=== PATIENT | male | born 1955 | race Two or more races ===

== ENCOUNTER → 2017-02-14 | Outpatient (CLI) | payer BC | END | disposition home or self-care (01) | LOC: HKI 13:08 | DX: Z47.89 Encounter for other orthopedic aftercare (principal); M94.262 Chondromalacia, left knee; M25.562 Pain in left knee ==

== ENCOUNTER → 2017-02-27 | Outpatient (CLI) | payer BC | END | disposition home or self-care (01) | LOC: HKI 13:12 | DX: Z47.1 Aftercare following joint replacement surgery (principal); M25.562 Pain in left knee; Z96.652 Presence of left artificial knee joint | CPT/HCPCS: Z7500 ==

== ENCOUNTER → 2017-05-08 | Outpatient (CLI) | payer BC | END | disposition home or self-care (01) | LOC: HKI 09:53 | DX: Z01.818 Encounter for other preprocedural examination (principal) | CPT/HCPCS: Z7500 ==

== ENCOUNTER 2017-05-10 07:39 | Day surgery (SDC) | payer BC ==
[~2017-05-10 07:39] MED LIST: CEFAZOLIN SODIUM 2GM/D5W 50 X1 IVPB; PROPOFOL 200 MG INJ
[2017-05-10] MEDS: ONDANSETRON 4 MG INJ IV (08:53)
[2017-05-10] MEDS: oxyCODONE (CR) 10 MG TAB [oxyCONTIN] PO (08:54)
[2017-05-10] MEDS: DEXAMETHASONE 4 MG/ML 1 ML INJ IV (08:54)
[2017-05-10] MEDS: LANSOPRAZOLE 30 MG CAP PO (08:54)
[2017-05-10] MEDS: LACTATED RINGER'S 1,000 ML IV* (08:55)
[2017-05-10] MEDS: ACETAMINOPHEN 1000MG/100ML IV 100 ML IVPB (08:55)
[2017-05-10] MEDS: CELECOXIB 200 MG CAP PO (08:55)
[2017-05-10] MEDS ORDERED: MIDAZOLAM 1 MG/ML 2 ML INJ (10:57)
[2017-05-10] MEDS: TRIAMCINOLONE ACET 40 MG/ML INJ (11:25)
[2017-05-10] MEDS: LIDOCAINE 1% (MPF) 30 ML INJ (11:25)
[2017-05-10] MEDS ORDERED: ONDANSETRON 4 MG INJ IV ×2 (11:30→12:30)
[2017-05-10] MEDS ORDERED: HYDROCODONE/APAP (5/325) TAB PO (11:30)
[2017-05-10] MEDS ORDERED: ETOMIDATE 20 MG INJ (11:58)
[2017-05-10] MEDS ORDERED: CEFAZOLIN 1 GM INJ (11:58)
[2017-05-10] MEDS ORDERED: LIDOCAINE 2% (SDV) 5 ML INJ (11:58)
[2017-05-10] MEDS ORDERED: ONDANSETRON 4 MG INJ (12:00)
[2017-05-10] MEDS ORDERED: DIPHENHYDRAMINE 50 MG INJ IV (12:30)
[2017-05-10] MEDS ORDERED: HYDROmorphONE (0.2 MG/ML) 10ML SYG IV ×2 (12:30)
[2017-05-10] MEDS ORDERED: FENTAnyl 50 MCG/ML VIAL IV (12:30)
[2017-05-10] MEDS ORDERED: METOCLOPRAMIDE 10 MG INJ IV (12:30)
[2017-05-10] MEDS ORDERED: LABETALOL HCL 20MG INJ IV (12:30)
[2017-05-10] MEDS ORDERED: MEPERIDINE 25 MG INJ IV (12:30)
[2017-05-10] MEDS: HYDROCODONE/APAP (5/325) TAB PO (14:15)
== END 2017-05-10 14:30 | disposition home or self-care (01) ==
LOC: SDS 07:39
DX: M17.12 Unilateral primary osteoarthritis, left knee (principal); M23.222 Derangement of posterior horn of medial meniscus due to old tear or injury, left knee; M65.9 Synovitis and tenosynovitis, unspecified; M94.262 Chondromalacia, left knee; E78.5 Hyperlipidemia, unspecified; I10 Essential (primary) hypertension
CPT/HCPCS: 29870

== ENCOUNTER → 2017-05-23 | Outpatient (CLI) | payer BC | END | disposition home or self-care (01) | LOC: HKI 14:04 | DX: Z09 Encounter for follow-up examination after completed treatment for conditions other than malignant neoplasm (principal); M17.12 Unilateral primary osteoarthritis, left knee | CPT/HCPCS: 73564; 73564-LT ==

== ENCOUNTER → 2017-10-03 | Outpatient (CLI) | payer BC | END | disposition home or self-care (01) | LOC: HKI 13:02 | DX: Z01.818 Encounter for other preprocedural examination (principal) | CPT/HCPCS: Z7500 ==

== ENCOUNTER 2017-10-04 07:05 | Inpatient (IN) | payer BC ==
[~2017-10-04 07:05] MED LIST changes: -CEFAZOLIN SODIUM 2GM/D5W 50 X1 IVPB; +EPHEDrine SULFATE 50 MG/5 ML SYG; -PROPOFOL 200 MG INJ
[2017-10-04] MEDS ORDERED: oxyCODONE 5 MG TAB PO (07:30)
[2017-10-04] MEDS ORDERED: BETHANECHOL 25 MG TAB PO (07:30)
[2017-10-04] MEDS ORDERED: DIPHENHYDRAMINE 50 MG INJ IV ×2 (07:30→11:30)
[2017-10-04] MEDS ORDERED: CEFAZOLIN 1 GM/50 ML (PMX) 50 ML IVPB ×3 (07:30→14:00)
[2017-10-04] MEDS ORDERED: NALOXONE (0.4 MG/ML) INJ IV (07:30)
[2017-10-04] MEDS ORDERED: SENNA/DOCUSATE NA (8.6MG/50MG) TAB PO (07:30)
[2017-10-04] MEDS ORDERED: ASPIRIN (EC) 325 MG TAB PO (07:30)
[2017-10-04] MEDS: DEXAMETHASONE 4 MG/ML 1 ML INJ IV (08:12)
[2017-10-04] MEDS: LANSOPRAZOLE 30 MG CAP PO (08:13)
[2017-10-04] MEDS: oxyCODONE (CR) 10 MG TAB [oxyCONTIN] PO (08:13)
[2017-10-04] MEDS: ONDANSETRON 4 MG INJ IV ×6 (08:13→22:15)
[2017-10-04] MEDS: CELECOXIB 200 MG CAP PO (08:13)
[2017-10-04] MEDS: LACTATED RINGER'S 1,000 ML IV* (08:14)
[2017-10-04] MEDS ORDERED: BUPIVACAINE 0.75%/DEXT (SPINAL) 2 ML INJ (10:43)
[2017-10-04] MEDS ORDERED: morphine SULFATE/PF (10 MG/10 ML) INJ (10:43)
[2017-10-04] MEDS ORDERED: PROPOFOL 20 ML (10:46)
[2017-10-04] MEDS ORDERED: MIDAZOLAM 1 MG/ML 2 ML INJ (10:46)
[2017-10-04] MEDS ORDERED: ONDANSETRON 4 MG INJ (10:46)
[2017-10-04] MEDS: TRANEXAMIC ACID 1,000 MG in NS 100 ML PRE-OP X1 IVPB (10:47)
[2017-10-04] MEDS ORDERED: CEFAZOLIN 1 GM INJ (10:47)
[2017-10-04] MEDS ORDERED: METOCLOPRAMIDE 10 MG INJ ×2 (10:47→18:27)
[2017-10-04] MEDS: BACITRACIN 50000 UNITS INJ IRR (11:27)
[2017-10-04] MEDS: POLYMYXIN B 500000 UNIT INJ (11:27)
[2017-10-04] MEDS: KNEE PAIN COCKTAIL (CEFUROXIME) INJ ×2 (11:28→20:16)
[2017-10-04] MEDS ORDERED: hydrALAzine 20 MG INJ IV (11:30)
[2017-10-04] MEDS ORDERED: MEPERIDINE 25 MG INJ IV (11:30)
[2017-10-04] MEDS ORDERED: HYDROmorphONE 1 MG/5 ML IV SYRINGE IV ×3 (11:30)
[2017-10-04] MEDS ORDERED: EPHEDrine SULFATE 50 MG/5 ML SYG IV (11:30)
[2017-10-04] MEDS ORDERED: LABETALOL HCL 20MG INJ IV (11:30)
[2017-10-04] MEDS: TRANEXAMIC ACID 1,000 MG in NS 100 ML INTRA-OP X1 IVPB (12:10)
[2017-10-04] MEDS ORDERED: ROPIVACAINE 0.2% 20 ML VIAL (12:15)
[2017-10-04] MEDS ORDERED: LIDOCAINE 2% (SDV) 5 ML INJ (12:15)
[2017-10-04] MEDS: CEFAZOLIN 1 GM/50 ML (PMX) 50 ML IVPB ×2 (13:34→22:17)
[2017-10-04] MEDS: DOCUSATE SODIUM 100 MG CAP PO ×2 (13:35→20:16)
[2017-10-04] MEDS: ASPIRIN (EC) 325 MG TAB PO ×2 (13:36→22:21)
[2017-10-04] MEDS: SOD CHLORIDE 0.9% 1,000 ML IV ×2 (13:45→22:15)
[2017-10-04] MEDS: METOCLOPRAMIDE 10 MG INJ IV (18:40)
[2017-10-04] MEDS: GABAPENTIN 100 MG CAP PO ×2 (20:16→22:16)
[2017-10-04] MEDS: PANTOPRAZOLE (EC) 40 MG TAB PO (20:16)
[2017-10-04] MEDS: CEFAZOLIN 2 GM/50 ML (PMX) 50 ML IVPB (20:16)
[2017-10-04] MEDS: SCOPOLAMINE 1.5 MG PATCH TRANSDERM (20:16)
[2017-10-04] MEDS: LATANOPROST 0.005% 2.5 ML OPH BOTH EYES (22:15)
[2017-10-04] MEDS: DORZOLAMIDE/TIMOLOL 10 ML OPH BOTH EYES (22:16)
[2017-10-04] MEDS: TAMSULOSIN (SR) 0.4 MG CAP PO (22:16)
[2017-10-05] MEDS: ONDANSETRON 4 MG INJ IV (01:23)
[2017-10-05 05:05] LABS: ADD MAN DIFF? NO
[2017-10-05 05:10] LABS: WHITE BLOOD COUNT 10.1 10^3/ul (4.8-10.8)
[2017-10-05 05:10] LABS: BASOPHILS % 0.1 % (0.0-2.0); EOSINOPHILS % 0.1 % (0.0-7.0); HEMATOCRIT 34.1 % (42.0-52.0); LYMPHOCYTES # 1.5 10^3/ul (0.8-2.9); MEAN CORPUSCULAR HEMOGLOBIN 31.9 pg (29.0-33.0); MEAN CORPUSCULAR HGB CONC 35.2 g/dl (32.0-37.0); MEAN CORPUSCULAR VOLUME 90.7 fl (82.0-101.0); MEAN PLATELET VOLUME 10.5 fl (7.4-10.4); MONOCYTE # 1.1 10^3/ul (0.3-0.9); MONOCYTES % 10.5 % (0.0-11.0); NEUTROPHIL # 7.5 10^3/ul (1.6-7.5); NEUTROPHILS % 73.9 % (39.0-77.0); PLATELET COUNT 247 10^3/UL (140-415); RED BLOOD COUNT 3.76 10^6/ul (4.70-6.10); RED CELL DISTRIBUTION WIDTH 12.3 % (11.5-14.5)
[2017-10-05 05:34] LABS: ANION GAP 15 (8-16); BLOOD UREA NITROGEN 12 mg/dl (7-20); CALCIUM 8.1 mg/dl (8.4-10.2); CARBON DIOXIDE 23 mmol/L (21-31); CHLORIDE 106 mmol/L (97-110); CREATININE 0.57 mg/dl (0.61-1.24); GLUCOSE 107 mg/dl (70-220); POTASSIUM 3.7 mmol/L (3.5-5.1); SODIUM 140 mmol/L (135-144)
[2017-10-05] MEDS: CEFAZOLIN 1 GM/50 ML (PMX) 50 ML IVPB (06:34)
[2017-10-05] MEDS: PANTOPRAZOLE (EC) 40 MG TAB PO (06:34)
[2017-10-05 07:50] LABS: ADD UMIC YES; UR ASCORBIC ACID NEGATIVE (NEGATIVE); UR BILIRUBIN (Dip) NEGATIVE (NEGATIVE); UR BLOOD (Dip) 1+ mg/dL (NEGATIVE); UR CLARITY CLEAR (CLEAR); UR COLOR YELLOW (YELLOW); UR GLUCOSE (Dip) NEGATIVE (NEGATIVE); UR KETONES (Dip) NEGATIVE (NEGATIVE); UR LEUKOCYTE ESTERASE (Dip) NEGATIVE Leu/ul (NEGATIVE); UR NITRITE (Dip) NEGATIVE (NEGATIVE); UR RBC 5 /HPF (0-5); UR SPECIFIC GRAVITY (Dip) 1.015 (1.003-1.030); UR TOTAL PROTEIN (Dip) NEGATIVE (NEGATIVE); UR UROBILINOGEN (Dip) NEGATIVE (NEGATIVE); UR WBC 0 /HPF (0-5)
[2017-10-05] MEDS: SOD CHLORIDE 0.9% 1,000 ML IV ×2 (08:00→08:21)
[2017-10-05] MEDS: FERROUS FUMARATE (SR) TAB PO ×2 (08:21→20:43)
[2017-10-05] MEDS: ASPIRIN (EC) 325 MG TAB PO ×2 (08:22→20:43)
[2017-10-05] MEDS: CELECOXIB 200 MG CAP PO ×2 (08:22→20:43)
[2017-10-05] MEDS: oxyCODONE 5 MG TAB PO ×4 (08:22→20:44)
[2017-10-05] MEDS: GABAPENTIN 100 MG CAP PO ×2 (08:23→20:44)
[2017-10-05] MEDS: DORZOLAMIDE/TIMOLOL 10 ML OPH BOTH EYES ×2 (08:23→20:45)
[2017-10-05] MEDS: NIFEdipine (XL) 90 MG TAB PO (08:23)
[2017-10-05] MEDS: DOCUSATE SODIUM 100 MG CAP PO (20:43)
[2017-10-05] MEDS: TAMSULOSIN (SR) 0.4 MG CAP PO (20:43)
[2017-10-05] MEDS: LATANOPROST 0.005% 2.5 ML OPH BOTH EYES (20:44)
[2017-10-06 05:11] LABS: ADD MAN DIFF? NO
[2017-10-06 05:17] LABS: BASOPHIL # 0.1 10^3/ul (0.0-0.1); BASOPHILS % 0.9 % (0.0-2.0); EOSINOPHILS # 0.4 10^3/ul (0.0-0.5); EOSINOPHILS % 4.5 % (0.0-7.0); HEMATOCRIT 34.2 % (42.0-52.0); HEMOGLOBIN 11.9 g/dl (14.0-18.0); LYMPHOCYTES # 2.3 10^3/ul (0.8-2.9); LYMPHOCYTES % 29.7 % (15.0-51.0); MEAN CORPUSCULAR HEMOGLOBIN 31.6 pg (29.0-33.0); MEAN CORPUSCULAR HGB CONC 34.8 g/dl (32.0-37.0); MEAN PLATELET VOLUME 11.1 fl (7.4-10.4); MONOCYTE # 0.9 10^3/ul (0.3-0.9); MONOCYTES % 11.2 % (0.0-11.0); NEUTROPHIL # 4.1 10^3/ul (1.6-7.5); NEUTROPHILS % 53.4 % (39.0-77.0); PLATELET COUNT 239 10^3/UL (140-415); RED BLOOD COUNT 3.76 10^6/ul (4.70-6.10); RED CELL DISTRIBUTION WIDTH 12.6 % (11.5-14.5)
[2017-10-06 05:17] LABS: WHITE BLOOD COUNT 7.7 10^3/ul (4.8-10.8)
[2017-10-06 05:57] LABS: ANION GAP 12 (8-16); BLOOD UREA NITROGEN 12 mg/dl (7-20); CALCIUM 8.3 mg/dl (8.4-10.2); CARBON DIOXIDE 25 mmol/L (21-31); CHLORIDE 103 mmol/L (97-110); CREATININE 0.62 mg/dl (0.61-1.24); GLUCOSE 101 mg/dl (70-220); POTASSIUM 3.4 mmol/L (3.5-5.1); SODIUM 137 mmol/L (135-144)
[2017-10-06] MEDS ORDERED: PANTOPRAZOLE (EC) 40 MG TAB PO (06:00)
[2017-10-06] MEDS: PANTOPRAZOLE (EC) 40 MG TAB PO (06:16)
[2017-10-06] MEDS: MAGNESIUM HYDROXIDE 30ML CUP PO (06:36)
[2017-10-06] MEDS: SOD CHLORIDE 0.9% 1,000 ML IV ×2 (08:00→21:51)
[2017-10-06] MEDS: FERROUS FUMARATE (SR) TAB PO ×2 (09:33→20:26)
[2017-10-06] MEDS: ASPIRIN (EC) 325 MG TAB PO ×2 (09:34→20:26)
[2017-10-06] MEDS: DOCUSATE SODIUM 100 MG CAP PO ×2 (09:34→20:26)
[2017-10-06] MEDS: GABAPENTIN 100 MG CAP PO ×2 (09:35→20:26)
[2017-10-06] MEDS: NIFEdipine (XL) 90 MG TAB PO (09:35)
[2017-10-06] MEDS: oxyCODONE 5 MG TAB PO ×3 (09:36→20:26)
[2017-10-06] MEDS: DORZOLAMIDE/TIMOLOL 10 ML OPH BOTH EYES ×2 (09:36→20:27)
[2017-10-06] MEDS: CELECOXIB 200 MG CAP PO ×2 (09:39→20:26)
[2017-10-06] MEDS: BISACODYL 10 MG SUPP PR (15:39)
[2017-10-06] MEDS: TAMSULOSIN (SR) 0.4 MG CAP PO (20:26)
[2017-10-06] MEDS: LATANOPROST 0.005% 2.5 ML OPH BOTH EYES (20:27)
[2017-10-06] MEDS: NA PHOSPHATE/BIPHOS 133 ML ENEMA PR (22:18)
[2017-10-06] MEDS: POTASSIUM CHLORIDE (SR) 20 MEQ TAB PO (23:09)
[2017-10-07 06:00] LABS: ADD MAN DIFF? NO
[2017-10-07] MEDS: PANTOPRAZOLE (EC) 40 MG TAB PO (06:17)
[2017-10-07 06:21] LABS: BASOPHILS % 0.3 % (0.0-2.0); EOSINOPHILS # 0.2 10^3/ul (0.0-0.5); EOSINOPHILS % 3.4 % (0.0-7.0); HEMATOCRIT 36.8 % (42.0-52.0); LYMPHOCYTES % 29.9 % (15.0-51.0); MEAN CORPUSCULAR HGB CONC 35.3 g/dl (32.0-37.0); MEAN CORPUSCULAR VOLUME 90.6 fl (82.0-101.0); MEAN PLATELET VOLUME 11.2 fl (7.4-10.4); MONOCYTE # 0.8 10^3/ul (0.3-0.9); MONOCYTES % 11.3 % (0.0-11.0); NEUTROPHIL # 3.7 10^3/ul (1.6-7.5); NEUTROPHILS % 54.8 % (39.0-77.0); PLATELET COUNT 259 10^3/UL (140-415); RED BLOOD COUNT 4.06 10^6/ul (4.70-6.10); RED CELL DISTRIBUTION WIDTH 12.4 % (11.5-14.5)
[2017-10-07 06:21] LABS: WHITE BLOOD COUNT 6.7 10^3/ul (4.8-10.8)
[2017-10-07 06:54] LABS: ANION GAP 15 (8-16); BLOOD UREA NITROGEN 10 mg/dl (7-20); CALCIUM 8.3 mg/dl (8.4-10.2); CARBON DIOXIDE 26 mmol/L (21-31); CHLORIDE 102 mmol/L (97-110); CREATININE 0.58 mg/dl (0.61-1.24); GLUCOSE 91 mg/dl (70-220); POTASSIUM 3.2 mmol/L (3.5-5.1); SODIUM 140 mmol/L (135-144)
[2017-10-07] MEDS: DOCUSATE SODIUM 100 MG CAP PO (08:19)
[2017-10-07] MEDS: ASPIRIN (EC) 325 MG TAB PO (08:19)
[2017-10-07] MEDS: GABAPENTIN 100 MG CAP PO (08:19)
[2017-10-07] MEDS: FERROUS FUMARATE (SR) TAB PO (08:19)
[2017-10-07] MEDS: CELECOXIB 200 MG CAP PO (08:19)
[2017-10-07] MEDS: NIFEdipine (XL) 90 MG TAB PO (08:19)
[2017-10-07] MEDS: DORZOLAMIDE/TIMOLOL 10 ML OPH BOTH EYES (08:20)
[2017-10-07] MEDS: MAGNESIUM HYDROXIDE 30ML CUP PO (13:53)
[2017-10-07] MEDS: POTASSIUM CHLORIDE (SR) 20 MEQ TAB PO (14:33)
== END 2017-10-07 16:15 | disposition home health service (06) | DRG 470 ==
LOC: REC 07:05 → MS1 20:31
PROC: 0SRD069 Replacement of Left Knee Joint with Oxidized Zirconium on Polyethylene Synthetic Substitute, Cemented, Open Approach (ICD-10-PCS; principal; 2017-10-04 10:47)
DX: M17.12 Unilateral primary osteoarthritis, left knee (principal); I10 Essential (primary) hypertension; G47.30 Sleep apnea, unspecified; F17.200 Nicotine dependence, unspecified, uncomplicated; N40.0 Benign prostatic hyperplasia without lower urinary tract symptoms
CPT/HCPCS: 73560; 80048; 81001; 85025; 87086; 88304; 88311; 97110; 97116; 97161; 97167; 97530; 97535

== ENCOUNTER → 2017-10-19 | Outpatient (CLI) | payer BC | END | disposition home or self-care (01) | LOC: HKI 10:04 | DX: M25.562 Pain in left knee (principal); Z96.652 Presence of left artificial knee joint | CPT/HCPCS: 73562; 73562-LT ==

== ENCOUNTER → 2017-11-13 | Outpatient (CLI) | payer BC | END | disposition home or self-care (01) | LOC: HKI 09:08 | DX: Z09 Encounter for follow-up examination after completed treatment for conditions other than malignant neoplasm (principal); Z96.652 Presence of left artificial knee joint | CPT/HCPCS: 73562; 73562-LT ==

== ENCOUNTER → 2018-05-01 | Outpatient (CLI) | payer BC | END | disposition home or self-care (01) | LOC: HKI 13:27 | DX: Z09 Encounter for follow-up examination after completed treatment for conditions other than malignant neoplasm (principal); Z96.659 Presence of unspecified artificial knee joint | CPT/HCPCS: 73562; 73562-LT ==